=== PATIENT | male | born 1960 | race Caucasian/White ===

== ENCOUNTER 2020-03-03 23:41 | Emergency (ER) | payer SELFPAY ==
[2020-03-04] VITALS: TEMP 97.7
[2020-03-04] MEDS ORDERED: EPINEPHrine HCL AMP 1 MG/ML AMP SUBCU ONE
[2020-03-04] MEDS ORDERED: SODIUM CHLORIDE 0.9% (FLUSH) 10 ML SYG IV PRN
[2020-03-04] MEDS ORDERED: diphenhydrAMINE HCL 50 MG/ML VIAL IV ONE
[2020-03-04] MEDS ORDERED: FAMOTIDINE IV PREMIX 20 MG in PREMIX BAG 1 BAG IVPB ONE
[2020-03-04] MEDS ORDERED: methylPREDNISolone SODIUM SUC 125 MG/2 ML VIAL IV ONE
--- NOTE | 2020-03-04 00:02 | ED.PDOC ---
History of Present Illness - General Chief Complaint: Allergic Reaction Stated Complaint: swollen lips, throat feels swollen, ate shrimp Time Seen by Provider: 03/03/20 23:59 Source: patient, RN notes reviewed, Vital Signs reviewed Exam Limitations: no limitations - History of Present Illness Initial Comments: This is a 59-year-old male presenting to the emergency department with swelling to the mouth, lips, tongue, and sensation of swelling in the oropharynx onset 1 hour after eating shrimp this evening for dinner. No previous history of shrimp or seafood allergies. He denies any new medications. He states he took 25 mg of Benadryl prior to arrival. He denies any shortness of breath, rash, abdominal pain, vomiting, diarrhea. No previous history of anaphylactic type reactions.He denies any new medications, he does not take any blood pressure medications. Lisinopril was listed on his medication list from an ER visit in 2012, but he states he has not taken that medication in many years. Allergies/Adverse Reactions: Allergies [place] Allergy (Unknown, Verified 03/04/20 00:49) CITRUS FOOD Allergy (Unknown, Uncoded 03/04/20 00:49) MILK/DAIRY PRODUCTS Allergy (Unknown, Uncoded 02/27/13 11:37) shrimp Allergy (Uncoded 03/04/20 00:49) Home Medications: Ambulatory Orders Lisinopril 10 mg PO DAILY 02/24/13 Metoprolol Succinate [Toprol Xl] 50 mg PO DAILY #30 tab 02/24/13 EPINEPHrine AUTO-INJ [EpiPen] 0.3 mg IM ONCE #1 pen 03/04/20 Prednisone 50 mg PO DAILY 3 Days #3 tab 03/04/20 Review of Systems - Review of Systems Constitutional: Denies: chills, fever, weakness EENTM: States: throat swelling, mouth swelling. Denies: ear pain, nose pain, throat pain Respiratory: Denies: orthopnea, short of breath, stridor, wheezing Cardiology: Denies: chest pain, edema, palpitations, syncope Gastrointestinal/Abdominal: Denies: constipation, diarrhea, nausea, vomiting Genitourinary: Denies: dysuria, hematuria Musculoskeletal: Denies: back pain, joint pain, muscle pain, neck pain Skin: Denies: change in color, dryness, rash Neurological: Denies: headache, paresthesia, seizure, tingling, weakness Endocrine: States: no symptoms reported Hematologic/Lymphatic: States: no symptoms reported Past Medical History (General) - Patient Medical History Hx Seizures: No Hx Stroke: No Hx Dementia: No Hx Asthma: No Hx of COPD: No Hx Cardiac Disorders: No Hx Congestive Heart Failure: No Hx Pacemaker: No Hx Hypertension: Yes - untreated HTN, states he doesn't take meds for it Hx Thyroid Disease: No Hx Diabetes: No Hx Gastroesophageal Reflux: No Hx Renal Disease: No Hx Cancer: No Hx of HIV: No Hx Hepatitis C: No Hx MRSA: No Surgical History: other - Vaccination History Hx Tetanus, Diphtheria Vaccination: - unknown Hx Influenza Vaccination: Yes - Social History Hx Alcohol Use: Yes - daily alcohol use beer/[place] Family Medical History - Family History Mother Family History: Unknown Physical Exam - Physical Exam General Appearance: Alert, Comfortable, No apparent distress Eye Exam: bilateral normal Ears, Nose, Throat: hearing grossly normal, other - Patient with angioedema of the upper and lower lips, and tongue. Voice is slightly muffled but tolerating secretions, airway appears to be widely patent. There is no uvular edema. No stridor. Neck: non-tender, full range of motion, supple Respiratory: chest non-tender, lungs clear, normal breath sounds, no respiratory distress, no accessory muscle use Cardiovascular/Chest: normal peripheral pulses, regular rate, rhythm, no edema, no gallop, no JVD, no murmur Gastrointestinal/Abdominal: non tender, soft Extremity: normal range of motion, non-tender, normal inspection Neurologic: no motor/sensory deficits, alert, normal mood/affect, oriented x 3 Skin Exam: normal color, warm/dry Progress - Progress Progress: 03/04/20 02:31 Rechecked. Vital signs normal. Lip swelling improving. Patient resting comfortably. We will continue to monitor through 4 hours after epi given. 03/04/20 04:12 03/04/20 04:12 Patient resting comfortably. Vital signs normal. Swelling improved. Tolerating secretions. No evidence of rebound anaphylaxis. Will discharge home with EpiPen. Recommended he avoid shellfish in the future. Strict warnings given to return the emergency room for shortness of breath, vomiting, abdominal pain, swelling in mouth/tongue/throat, or any other concerns. MDM: DDX: Anaphylaxis, allergic angioedema, CHARLY inhibitor related angioedema Patient presenting with swelling to the lips, tongue onset after eating shrimp tonight. No previous iodine/shellfish allergies in the past. He was previously on an CHARLY inhibitor until several years ago, but denies taking that recently. He denies any new medications. Suspect this is likely an acute allergy to shellfish. Recommended he avoid shellfish in the future. He was treated with epinephrine, corticosteroids, antihistamines with market improvement. Will discharge home with short steroid burst as well as prescription for EpiPen. Discussed proper use of an EpiPen and need to come to the emergency room if EpiPen is used so that he could be observed for rebound symptoms. Recommended follow-up with PCP in 2 to 3 days for recheck. Keenan Flores DO [facility] #[id number] - Results/Orders Results/Orders: 03/04/20 00:00 IV Care:Saline Lock per Protoc QSHIFT Sodium Chloride 0.9% (Flush) [Saline Flush Syringe] 3 ml IV PRN PRN EKG STAT Laboratory Results - last 24 hr 03/04/20 03/04/20 00:07 00:07 WBC 8.8 RBC 4.65 L Hgb 14.5 Hct 43.0 MCV 92.4 MCH 31.2 H MCHC 33.8 RDW 13.2 Plt Count 223 MPV 7.8 Absolute Neuts (auto) 5.50 Absolute Lymphs (auto) 2.40 Absolute Monos (auto) 0.60 Absolute Eos (auto) 0.20 Absolute Basos (auto) 0.00 Neutrophils % 62.5 Lymphocytes % 27.6 Monocytes % 7.3 Eosinophils % 2.2 Basophils % 0.4 Sodium 129 L Potassium 3.3 L Chloride 96 L Carbon Dioxide 19 L Anion Gap 17.3 BUN 14 Creatinine 0.90 BUN/Creatinine Ratio 15.6 Random Glucose 84 Serum Osmolality 258.6 L Calcium 8.5 EXAM: Single view chest. INDICATION: Shortness of breath. COMPARISON: Chest x-ray: 02/23/2013. FINDINGS: Cardiac silhouette: Unremarkable. Stephany: Unremarkable. Lobar consolidation: None. Pleural effusion: None. Pneumothorax: None. Other: None. Bones: Old healed right clavicular fracture. Other: None. IMPRESSION: 1. No acute cardiopulmonary process. Electronically signed by: Tim Olvera MD 03/04/2020 12:24 AM CDTEKG reviewed by me at 12:10 AM. Sinus rhythm, 94, normal axis, borderline QTC at 475, poor R wave progression, nonspecific ST and T wave change Departure - Departure Clinical Impression: Anaphylaxis Qualifiers: Encounter type: initial encounter Qualified Code(s): T78.2XXA - Anaphylactic shock, unspecified, initial encounter Angioedema Qualifiers: Encounter type: initial encounter Qualified Code(s): T78.3XXA - Angioneurotic edema, initial encounter Disposition: Discharge to Home or Self Care Condition: Fair Departure Forms: ED Discharge - Pt. Copy, Patient Portal Self Enrollment Instructions: DI for Allergic Rhinitis Diet: resume usual diet Activity: increase activity as tolerated Prescriptions: EPINEPHrine AUTO-INJ [EpiPen] 0.3 mg IM ONCE #1 pen Prednisone 50 mg PO DAILY 3 Days #3 tab Home Medications: Ambulatory Orders Lisinopril 10 mg PO DAILY 02/24/13 Metoprolol Succinate [Toprol Xl] 50 mg PO DAILY #30 tab 02/24/13 EPINEPHrine AUTO-INJ [EpiPen] 0.3 mg IM ONCE #1 pen 03/04/20 Prednisone 50 mg PO DAILY 3 Days #3 tab 03/04/20 Additional Instructions: Avoid shellfish in the future
[2020-03-04] MEDS ORDERED: FAMOTIDINE IV PREMIX 50 ML IVPB ONE (00:07)
--- NOTE | 2020-03-04 00:26 | RAD ---
EXAM: Single view chest. INDICATION: Shortness of breath. COMPARISON: Chest x-ray: 02/23/2013. FINDINGS: Cardiac silhouette: Unremarkable. Stephany: Unremarkable. Lobar consolidation: None. Pleural effusion: None. Pneumothorax: None. Other: None. Bones: Old healed right clavicular fracture. Other: None. IMPRESSION: 1. No acute cardiopulmonary process. Electronically signed by: Tim Olvera MD 03/04/2020 12:24 AM CDT
[2020-03-04 02:30] VITALS: O2SAT 96
[2020-03-04 03:16] VITALS: BP 131/72
== END 2020-03-04 04:08 | disposition home or self-care (01) ==
LOC: ER 23:41
DX: T78.3XXA Angioneurotic edema, initial encounter (principal); T78.02XA Anaphylactic reaction due to shellfish (crustaceans), initial encounter; I10 Essential (primary) hypertension; Z91.011 Allergy to milk products; Z91.013 Allergy to seafood; Z91.018 Allergy to other foods
CPT/HCPCS: 36415; 71045; 80048; 85025; 93005; J1200; J2930; J3490